=== PATIENT | female | born 1970 | race African-American/Black ===

== ENCOUNTER → 2024-01-13 07:59 | Outpatient (REF) | payer OTHER, SELFPAY | LOC: WDC 07:59 | PROVIDERS: ATTENDING PHYSICIAN Obstetrics & Gynecology Gynecology; FAMILY PHYSICIAN Nurse Practitioner Family | DX: Z12.31 Encounter for screening mammogram for malignant neoplasm of breast (principal) | CPT/HCPCS: 77063; 77067 ==

== ENCOUNTER → 2024-12-03 07:45 | Outpatient (REF) | payer OTHER, SELFPAY | LOC: RCS 07:45 | PROVIDERS: ATTENDING PHYSICIAN Physician Assistant Medical; FAMILY PHYSICIAN Family Medicine | DX: R00.0 Tachycardia, unspecified (principal) | CPT/HCPCS: 93225; 93226 ==

== ENCOUNTER 2024-12-10 07:38 | Emergency (ER) | payer OTHER, SELFPAY ==
[2024-12-10 07:39] VITALS: BP 145/96
[2024-12-10 09:46] VITALS: BP 122/90; BMI 25.2
[2024-12-10 10:00] VITALS: BP 134/85
[2024-12-10 10:14] LABS: Hematocrit 36.4 % (37.0-47.0); Hemoglobin 12.3 g/dL (12.0-16.0); Mean Corp Hgb Conc. 33.8 g/dL (33.0-37.0); Mean Corpuscular Volume 89.7 fL (81.0-99.0); Nucleated Red Blood Cells % 0 %; Red Cell Dist. Width 13.3 % (11.5-14.5)
[2024-12-10 11:00] VITALS: BP 110/85
[2024-12-10 11:20] LABS: ALT (SGPT) 10 U/L (0-35); AST (SGOT) 17 U/L (14-36); Albumin 4.1 g/dl (3.5-5.0); Alkaline Phosphatase 79 U/L (38-126); Blood Urea Nitrogen 8 mg/dl (7-17); Calcium 9.2 mg/dl (8.4-10.2); Carbon Dioxide 26 mmol/L (22-30); Chloride 106 mmol/L (98-107); Estimated Creatinine Clearance 86 ml/min; Glucose 74 mg/dl (70-99); Potassium 3.9 mmol/L (3.5-5.1); Sodium 138 mmol/L (135-145); Total Protein 7.4 g/dl (6.3-8.2); eGFR > 60.00
[2024-12-10 12:00] VITALS: BP 105/74
--- NOTE | 2024-12-10 12:00 | ED.GENMED ---
History of Present Illness
General
Chief Complaint: Heart Rate Problem
Source: patient
Time Seen by Provider: 12/10/24 09:18
History of Present Illness
History of Present Illness:
54-year-old female with no significant medical history presents to the emergency department for evaluation of palpitations and elevated heart rate that have been ongoing for the last few weeks, had seen primary care provider initially and was given
a Holter monitor which she wore for a few days, had a heart rate as high as 130 while wearing the monitor but on her Apple watch has had intermittent episodes with her heart rate going as high as about 165 bpm. Today patient states she felt a
little bit lightheaded at the time but that symptoms resolved quite quickly. She has an appointment with cardiology scheduled but not until February 14. Patient without any fevers or infectious symptoms. Social history and family history were both
noncontributory she is denying any chest pain, shortness of breath, diaphoresis, exertional dyspnea, cough or any other concerns.
Past History
Past History
ED Past Medical History: None
ED Past Surgical History:
Social History
Tobacco: Non-smoker
Alcohol: None
Drug: None
Personal:
Living: with family
Review of Systems
Review of Systems
All Other Systems: ROS reviewed and negative except as documented in HPI and ROS
Phy Exam
Physical Exam
Physical Exam:
GENERAL: Alert , in no apparent distress
HEAD: Normocephalic atraumatic
EYE: conjunctiva clear
NECK: Supple, no significant adenopathy.
ENT: o/p clr, mmm.
CARDIAC: Regular rate and rhythm
LUNGS: Clear breath sounds bilaterally, no acute respiratory distress, no wheezes/rales/rhonchi
NEUROLOGICAL: Alert and oriented
SKIN: Warm and dry, skin intact.
MUSCULOSKELETAL: well perfused.
PSYCH: Normal and appropriate interaction.
Scores
Heart Failure Risk
Heart Failure Risk Score: Not Applicable
Heart Score for Chest Pain Patients
STEMI patient?: Not applicable
Withdrawal Assessment of Alcohol
Withdrawal Assessment Completed?: Not applicable
Course
Orders/Labs/Results
Orders:
Orders
12/10/24 07:41
EKG [Electrocardiogram (*1)] Urgent
Reason for Study: Tachycardia
EKG- Treatment ONCE
12/10/24 09:58
Complete Blood Count/With Diff Urgent
12/10/24 10:37
Comprehensive Metabolic Panel Urgent
TSH Reflex To Free T4 Urgent
Abnormal Lab Results
12/10/24
09:58
RBC 4.06 L 10^6/uL
(4.20-5.40)
Hct 36.4 L %
(37.0-47.0)
12/10/24 09:58
12/10/24 10:37
Vital Signs
Initial and Last Documented VS:
Initial Vital Signs
Temp Pulse Resp BP Pulse Ox
98.3 F 102 18 145/96 97
12/10/24 07:39 12/10/24 07:39 12/10/24 07:39 12/10/24 07:39 12/10/24 07:39
Last Documented Vital Signs
Temp Pulse Resp BP Pulse Ox
98.3 F 95 18 105/74 98
12/10/24 07:39 12/10/24 12:15 12/10/24 12:15 12/10/24 12:00 12/10/24 12:15
MDM/Problems Addressed
Differential Diagnosis Includes:
Atrial fibrillation
SVT
Atrial tachycardia
Valvular dysfunction
Electrolyte imbalance
Thyroid disorder
No other symptoms to suggest ACS
MDM/Problems Addressed:
54-year-old female presenting the ER for evaluation of increased heart rate intermittent palpitations that been ongoing for the last 2 weeks. Patient has already worn a Holter monitor and has an appointment scheduled with cardiology but not for
another 2 months. Arrives to the ER here hemodynamically stable and in no acute distress. Will check labs and keep on telemetry. Reassessment following with anticipation of if everything comes back unremarkable will refer patient to the chest
pain hotline to help expedite follow-up visit.
*Pulse Oximetry
SaO2: 98
Oxygen Mode of Delivery: Room air
Patient hypoxic: no
*EKG
Heart Rate: 95
Rate: normal
Rhythm: sinus
Christopher: normal axis
Ischemia: no ischemia
*Social Worker Assistant Interpretation
Rate: normal
Heart Rate: 88
Rhythm: sinus
*Critical Care Note
Total Time (30-74mins, 75-104mins- exclusive of procedures): Not Applicable
Patient Management
Discussion with other providers: Material Clerk
Escalation/DeEscalation of care consider admission/obs:
I was able to speak with cardiology as they were down in the ER seeing another patient and they were able to notify their lead front desk agent staff who was able to get the patient an appointment tomorrow for further consultation. Continuing to observe the
patient in the ER for any signs of cardiac arrhythmia with anticipation of being discharged home and outpatient follow-up.
Patient has remained stable without any episodes of tacky arrhythmias. Stable for discharge and will follow-up with cardiology tomorrow.
ED Attending Note
-
Portions of this chart may have been created with voice recognition software.� Occasional wrong word or��sound alike� substitutions may have occurred due to the inherent limitations of voice recognition software.
Discharge Plan
Departure
Patient Disposition: Home (Routine Discharge)
Date of Disposition: 12/10/24
Time of Disposition: 12:15
Patient with high blood pressure during this ER visit?: No
Discharge Problem:
Palpitations
Instructions: Palpitations (DC)
Prescriptions:
No Action
vit-ferrous sulfat-FA 1 EACH tablet
Referrals:
Favio Olguin DO [Family Provider, Family Practice]
Interventions
Interventions:
*Risk Screen - Suicide Last Done: 12/10/24 09:48
*General Assessment Last Done: 12/10/24 09:48
*Neglect/Abuse Screening Last Done: 12/10/24 09:48
*ED- Fall Risk Assessment Last Done: 12/10/24 09:48
*ED COVID-19 Vaccine History Last Done: 12/10/24 09:48
*ED Influenza Vaccine History Last Done: 12/10/24 09:48
ED- Cardiac Assessment Last Done: 12/10/24 09:48
ED- Pulmonary Assessment Last Done: 12/10/24 09:48
Discharge Date and Time
Print Language: KOREAN
== END 2024-12-10 13:15 | disposition home or self-care (01) ==
LOC: EMR 07:38
PROVIDERS: Emergency Medicine; EMERGENCY PHYSICIAN Emergency Medicine; FAMILY PHYSICIAN Family Medicine
DX: R00.2 Palpitations (principal); Z98.891 History of uterine scar from previous surgery
CPT/HCPCS: 99283; 80053; 84443; 85025; 93005

== ENCOUNTER → 2024-12-18 06:54 | Outpatient (REF) | payer OTHER, SELFPAY | LOC: RCS 06:54 | PROVIDERS: ATTENDING PHYSICIAN Internal Medicine Cardiovascular Disease; FAMILY PHYSICIAN Family Medicine | DX: R00.0 Tachycardia, unspecified (principal) | CPT/HCPCS: 93306 ==

== ENCOUNTER → 2025-01-18 07:51 | Outpatient (REF) | payer OTHER, SELFPAY | LOC: WDC 07:51 | PROVIDERS: ATTENDING PHYSICIAN Obstetrics & Gynecology Gynecology; FAMILY PHYSICIAN Family Medicine | DX: Z12.31 Encounter for screening mammogram for malignant neoplasm of breast (principal) | CPT/HCPCS: 77063; 77067 ==